=== PATIENT | female | born 1990 | race Caucasian/White ===

== ENCOUNTER 2023-04-04 06:46 | Day surgery (SDC) | payer OTHER, SELFPAY ==
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
--- NOTE | 2023-04-04 07:08 | PCM.HP.BLA ---
History and Physical Date of Admission: 04/04/23 Visit Reasons: Dysphagia Chief Complaint: dysphagia Is patient in pain?: No Allergies azithromycin [From Zithromax] Allergy (Mild, Verified 02/25/23 13:14) Diarrheaamoxicillin [Amoxicillin] Allergy (Verified 02/25/23 13:14) Nausea/Vom/Diarrhealatex Allergy (Verified 02/25/23 13:14) Rash Medications naproxen 250 mg tablet 250 - 500 mg (1 - 2 x 250 mg) PO Q8H PRN PRN MILD PAIN ##40 03/31/13 [Rx] cholecalciferol (vitamin D3) 25 mcg (1,000 unit) capsule 25 mcg PO DAILY 02/25/23 [History Confirmed 02/25/23] multivitamin 1 tab PO DAILY 02/25/23 [History Confirmed 02/25/23] omega 3-nzc-rjv-fish oil 60 mg-90 mg-500 mg capsule (Fish Oil) 1 cap PO .every other day 02/25/23 [History Confirmed 02/25/23] PFSH Medical History (Updated 02/25/23 @ 13:11 by Zeenat Medrano) Heart murmur Surgical History (Updated 02/25/23 @ 13:12 by Zeenat Medrano) History of tonsillectomy Family History (Updated 02/25/23 @ 13:12 by Zeenat Medrano) Mother Breast cancerFather Heart disease Social History Smoking Status: Never smoker alcohol intake: current alcohol intake frequency: holidays/special occasions only HPI HPI HPI: 52-year-old female is being referred by Dr. Michael Gong for surgical consultation regarding esophageal dysphagia and reflux suspicions. A written copy of my surgical consult recommendations will return to her. Since I have seen her last in 2011 she has had 4 children. She is constantly had reflux symptoms. She uses Tums. She is try to avoid other medications. For period of time she was on Nexium for 2 years but she stopped that in 2011. She tried some apple cider vinegar. Now she is on fast metabolism diet and when she eats only vegetables and proteins she has significant heartburn up in her throat and epigastric pain. Her only abdominal procedure was a back in 2013. She does cardio exercises 4-5 times a week and Pilates as well and weightlifting at least 2 times a week. It is of note that I have previously assisted the patient on October 29, 2011 with a esophagogastroduodenoscopy for reflux disease. At that time mild distal esophagitis with hiatal hernia noted with possible minimal duodenitis. A pH probe was placed at that setting as well.The pH probe had a day 1 DeMeester score of 34.4 and day 2 at 16.2 with an total score of 26.9 which was felt to be abnormal. The duodenal biopsy showed nonspecific chronic inflammation. Distal esophageal biopsy showed chronic inflammation and changes consistent with gastroesophageal reflux disease. Lamas's esophagus was not identified. ROS General General: Yes weight change; No appetite, fatigue, colon cancer, breast cancer or weakness HEENT HEENT: Yes difficulty swallowing; No eye injury, eye surgery, swollen glands or hoarseness Endo Endocrine: No thyroid disease, diabetes mellitus, thyroid cancer, Hair loss, heat intolerance or cold intolerance Skin Skin: No rash or changing moles Musc Musculoskeletal: No back problems, arthritis, rheumatoid arthritis, gout or joint pain Cardio Cardiovascular: Yes murmur; No pacemaker, heart disease, atrial fibrillation, high blood pressure, heart attack, heart stent, palpitations, shortness of breat with exertion or chest pain Psych Psychiatric: No depression, anxiety or hearing voices Resp Respiratory: No shortness of breath, No sleep apnea, No cough, No COPD, No asthma, No emphysema and No wheezing Gastro Gastrointestinal: Yes abdominal pain, Yes nausea or vomiting, No diarrhea, No constipation, No blood in stool, Yes acid reflux, No hemorrhoids, No ulcers, No gallbladder problem and No black,tarry stools Sawyer Hematologic: No blood thinners, No blood disorders, No bleeding, No anemia and No blood clots Neuro Neurologic: No system reviewed and no additional complaints, except as documented, No as per HPI, No abnormal gait, No abnormal hearing, No abnormal movements, No abnormal speech, No behavioral changes, No burning sensations, No confusion, No convulsions, No disequilibrium, No dizziness, No localized weakness, No frequent falls, No headache(s), No lack of coordination, No loss of vision, No memory loss, No numbness, No other visual disturbances, No radicular pain, No restless legs, No sensory deficit, No syncope, No tingling, No tremor(s), No weakness and No other Exam Const General: cooperative, healthy appearing, comfortable and no acute distress HENMT Head: normal to inspection Eyes General: appearance normal, both eyes and all related structures Neck Neck: normal visual inspection Resp Effort & Inspection: normal respiratory effort Auscultation: clear to auscultation bilaterally Cardio Rate: regular rate Rhythm: regular rhythm GI Inspection: normal to inspection Palpation: no hepatosplenomegaly Musc Cervical Spine: normal cervical lordosis Skin General: no rashes or lesions noted Neuro General: patient alert, patient awake and patient oriented x3 Extrem General: no calf tenderness Psych Appearance: grossly normal Assessment and Plan Assessment and Plan (1) Dysphagia: Qualifiers: Dysphagia type: esophageal phase Qualified Code(s): R13.19 - Other dysphagia Plan: Very pleasant 32-year-old female with a long-term history of Gastrosoft reflux disease. We did have quite a discussion today regarding treatment options. I certainly propose for her updated esophagogastroduodenoscopy with possible biopsy or polypectomy as indicated. Careful inspection for her esophageal length presence of a hernia and possible presence of Lamas's will be pursued. She has had an opportunity ask and have questions answered. I then mentioned that we likely would want to pursue esophageal manometry. Then based upon this information could potentially offer her a surgical reflux procedure. I did have somewhat of a caution that we might consider a Yana as it would be more durable in this patient is very physically active. At this point we will pursue the upper scope and then make further recommendations as appropriate. I appreciate the opportunity of assisting with her surgical care. Copy: Dr. Michael Trinidad M.D., F.A.C.S. I have examined the patient and the H&P has been reviewed. There are no clinical changes since date of exam. Manohar Trinidad M.D., F.A.C.S.
[2023-04-04 07:36] LABS: Internal QC Validated? YES +Cl - CLEAR BKGD; Pregnancy, Urine Negative Negative; Record Kit Lot#,Urine Preg H0000718086
[2023-04-04 07:38] VITALS: BP 105/74; PULSE 79; RESP 16; O2SAT 100; BMI 27.1
--- NOTE | 2023-04-04 08:00 | EGD_PTH ---
PATHOLOGY RESULTS PATIENT: CORAZON ACKERMAN LOC: EN U#:[id number] AGE/SX: 32/F ROOM: RE04/04/[address]: Dr. Manohar Trinidad MD : 1990 BED: DIS: 04/04/2023 SPEC #: [id number] RECD: 04/04/23 11:10 STATUS: NELIA KAREN #: [id number] YENY: 04/04/23 08:[address]: Manohar Trinidad DEPT: SURGICAL PATHOLOGY RECD BY: Nelda Monroy ENTERED: 04/04/23 11:53 SP TYPE: EGD BIOPSY OTHR DR: Dr. Michael Gong DO Tissues: Duodenum, NOS Gastric mucous membrane Esophagus, NOS Esophagus, NOS Procedures: Special Stain Group II Surgery Specimen Level IV Alcian Blue/PAS (control) HEADER OPERATION: EGD, biopsy PRE-OP DIAGNOSIS: Dysphagia TISSUE SUBMITTED: A - Duodenum biopsy, B - Gastric antrum biopsy, H. pylori and path, C - Distal esophagus biopsy, D??Mid esophagus biopsy MICROSCOPIC DIAGNOSIS A. Duodenum, biopsy: No pathologic change. B. Gastric antrum, biopsy: Mild chronic gastritis. See comment. C. Distal esophagus, biopsy: Gastroesophageal junctional mucosa with mild chronic inflammation. No evidence of goblet cell metaplasia. See comment. D. Mid esophagus, biopsy: Fragment of benign squamous mucosa. No evidence of inflammation. AM:mayco 04/07/2023 COMMENT B. The results of immunohistochemistry for Helicobacter pylori will be reported separately ([id number]). C. Alcian blue/PAS stain with matched control supports the above diagnosis. MICROSCOPIC DESCRIPTION Slides are reviewed. GROSS DESCRIPTION A - Received in fixative is one container labeled with the patient's name and designated duodenum biopsy. The specimen consists of one irregular fragment of light dixon soft tissue that measures 0.4 x 0.4 x 0.1 cm. The specimen is totally submitted in one cassette. B - Received in fixative is one container labeled with the patient's name and designated gastric antrum. The specimen consists of one irregular fragment of light dixon soft tissue that measures 0.3 x 0.3 x 0.1 cm. The specimen is totally submitted in one cassette. C - Received in fixative is one container labeled with the patient's name and designated distal esophagus biopsy. The specimen consists of multiple irregular fragments of light dixon soft tissue that in aggregate measure 1.0 x 0.3 x 0.1 cm. The specimen is totally submitted in one cassette. D - Received in fixative is one container labeled with the patient's name and designated mid esophagus biopsy. The specimen consists of two irregular fragments of light dixon soft tissue that in aggregate measure 0.5 x 0.3 x 0.1 cm. The specimen is totally submitted in one cassette. / SJ:rg 04/04/2023 TC:3 CPT: 67571 x4, 94178
--- NOTE | 2023-04-04 08:00 | IMM_PTH ---
PATHOLOGY RESULTS PATIENT: CORAZON ACKERMAN LOC: EN U#:[id number] AGE/SX: 32/F ROOM: RE04/04/[address]: Dr. Manohar Trinidad MD : 1990 BED: DIS: 04/04/2023 SPEC #: [id number] RECD: 04/04/23 12:58 STATUS: NELIA REQ #: [id number] YENY: 04/04/23 08:[address]: Manohar Trinidad DEPT: IMMUNOHISTOCHEMISTRY RECD BY: Ashley Michelle ENTERED: 04/04/23 12:59 SP TYPE: IMMUNO OTHR DR: Dr. Michael Gong, DO Tissues: Stomach, NOS Procedures: H Pylori (initial) PHYSICIAN & INSTITUTION [place] [id number] SPECIMEN INFORMATION: Tissue Source: B - Gastric antrum Clinical Info: Dysphagia Specimen Number: [id number] CPT code: 83647 METHODOLOGY: Deparaffinized sections of prefer/formalin-fixed tissue or PAP/DQ stained slides are incubated with monoclonal/polyclonal antibodies/oligonucleotide probes. Localization is made via biotin free immunoperoxidase method. Appropriate controls are performed and reacted as expected. Results on target cell population are indicated in the following table: RESULTS: ANTIBODY / CLONE RESULT Block B H Pylori (polyclonal) negative These tests were developed and their performance characteristics determined by [facility]. They may not have been cleared or approved by the U.S. Food and Drug Administration. The FDA has determined that such clearance or approval is not necessary. The above immunohistochemical/dualISH markers are ordered and reviewed by the Pathologist. INTERPRETATION: B. Gastric antrum, biopsy: Negative for Helicobacter pylori organisms. AM:mayco 04/07/2023
[2023-04-04 08:30] VITALS: BP 105/74; BP 108/74; PULSE 77; RESP 14; TEMP 36.1; O2SAT 98
--- NOTE | 2023-04-04 08:31 | OP.EGD_ITS ---
Patient Name: Jania Busby Procedure Date: 04/04/2023 8:10 AM Date of : 1990 Age: 32 Procedure: Upper GI endoscopy Indications: Gastro-esophageal reflux disease Providers: Manohar Trinidad MD Referring MD: Michael Gong Medicines: See the Anesthesia note for documentation of the administered medications Complications: No immediate complications. Procedure: Pre-Anesthesia Assessment: - Prior to the procedure, a History and Physical was performed, and patient medications and allergies were reviewed. The patient's tolerance of previous anesthesia was also reviewed. The risks and benefits of the procedure and the sedation options and risks were discussed with the patient. All questions were answered, and informed consent was obtained. Prior Anticoagulants: The patient has taken no anticoagulant or antiplatelet agents. ASA Grade Assessment: II - A patient with mild systemic disease. After reviewing the risks and benefits, the patient was deemed in satisfactory condition to undergo the procedure. After obtaining informed consent, the endoscope was passed under direct vision. Throughout the procedure, the patient's blood pressure, pulse, and oxygen saturations were monitored continuously. The gastroscope was introduced through the mouth, and advanced to the second part of duodenum. The upper GI endoscopy was accomplished without difficulty. The patient tolerated the procedure well. Scope In: 8:18:23 AM Scope Out: 8:25:55 AM Total Procedure Duration Time 0 hours 7 minutes 32 seconds Findings: The Z-line was variable and was found 38 cm from the incisors. A 2 cm hiatal hernia was present. Biopsies were taken with a cold forceps for histology. The entire examined stomach was normal. Biopsies were taken with a cold forceps for histology. The examined duodenum was normal. Biopsies were taken with a cold forceps for histology. Bilious fluid was found in the stomach. Impression: - Z-line variable, 38 cm from the incisors. - 2 cm hiatal hernia. Biopsied. - Normal stomach. Biopsied. - Normal examined duodenum. Biopsied. - Bilious gastric fluid. Recommendation: - Discharge patient to home. - Resume previous diet. - Continue present medications. - Telephone my office for pathology results in 1 week Small hiatal hernia, mild reflux esophagitis, bile reflux in the stomach. Consider esophageal manometry if the patient desires to pursue surgical reflux procedure. Procedure Code(s): --- Professional --- 30115, Esophagogastroduodenoscopy, flexible, transoral; with biopsy, single or multiple Diagnosis Code(s): --- Professional --- K22.89, Other specified disease of esophagus K44.9, Diaphragmatic hernia without obstruction or gangrene K21.9, Gastro-esophageal reflux disease without esophagitis CPT copyright 2021 [employer]. All rights reserved. The codes documented in this report are preliminary and upon pig caster review may be revised to meet current compliance requirements. Manohar Trinidad MD 04/04/2023 8:31:27 AM This report has been signed electronically. Number of Addenda: 0 Note Initiated On: 04/04/2023 8:10 AM
--- NOTE | 2023-04-04 08:31 | OP.CCLET_ITS ---
04/04/2023 Michael Gong [address] [place] [address] Re : Upper GI endoscopy procedure for Jania Busby Dear Dr. Gong This procedure was performed on Tuesday, April 04, 2023. My impressions and recommendations are as follows: Impressions : - Z-line variable, 38 cm from the incisors. - 2 cm hiatal hernia. Biopsied. - Normal stomach. Biopsied. - Normal examined duodenum. Biopsied. - Bilious gastric fluid. Recommendations : - Discharge patient to home. - Resume previous diet. - Continue present medications. - Telephone my office for pathology results in 1 week Small hiatal hernia, mild reflux esophagitis, bile reflux in the stomach. Consider esophageal manometry if the patient desires to pursue surgical reflux procedure. My findings are described in the full procedure note, which is enclosed. If I can be of further assistance, please feel free to contact me at Doctor phone number(s): Work: . Sincerely, Manohar Trinidad MD 04/04/2023 8:31:27 AM This report has been signed electronically.
[2023-04-04 08:35] VITALS: BP 103/79; BP 105/74; PULSE 82; RESP 16; O2SAT 97
[2023-04-04 08:40] VITALS: BP 105/74; BP 105/75; PULSE 83; RESP 16; O2SAT 98
[2023-04-04 08:45] VITALS: BP 101/71; BP 105/74; PULSE 81; RESP 16; TEMP 36.2; O2SAT 97
[2023-04-04 08:56] VITALS: BP 105/74
== END 2023-04-04 09:27 | disposition home or self-care (01) ==
LOC: EN 06:47 → AC 06:48
PROVIDERS: Anesthesiology; PCP Student in an Organized Health Care Education/Training Program; Referring Provider Student in an Organized Health Care Education/Training Program; Visit Provider Surgery
PROC: 0DJ08ZZ Inspection of Upper Intestinal Tract, Via Natural or Artificial Opening Endoscopic (ICD-10-PCS; CPT 43235; principal; 2023-04-04 07:55)
DX: K29.50 Unspecified chronic gastritis without bleeding (principal); R13.19 Other dysphagia; K44.9 Diaphragmatic hernia without obstruction or gangrene; K22.89 Other specified disease of esophagus; K21.00 Gastro-esophageal reflux disease with esophagitis, without bleeding
CPT/HCPCS: 43239; 81025; 88305; 88313; 88342; J7120; J2405